=== PATIENT | female | born 1985 | race Asian ===

== ENCOUNTER 2017-09-04 19:49 | Emergency (ER) | payer BC, MEDICAID ==
[2017-09-04 21:02] LABS: #Basophils 0.1 thou/uL (0.0-0.2); #Eosinphils 0.3 thou/uL (0.0-0.7); #Lymphocytes 2.3 thou/uL (1.20-3.40); #Monocytes 0.6 thou/uL (0.11-0.59); #Neutrophils 4.8 thou/uL (1.40-6.50); %Basophils 1.3 % (0.0-1.0); %Eosinophils 3.5 % (0.0-10.0); %Lymphocytes 28.2 % (21.0-51.0); %Monocytes 7.5 % (0.0-10.0); Hematocrit 37.9 % (36.0-47.0); Mean Platelet Volume 8.5 fL (7.4-10.4); Red Blood Cell (RBC) Count 4.29 mill/uL (4.20-5.40); White Blood Cell (WBC) Count 8.1 thou/uL (4.8-10.8)
--- NOTE | 2017-09-04 22:53 | ULT ---
PELVIC SONOGRAM TRANSABDOMINAL AND TRANSVAGINAL IMAGING WITH DUPLEX EVALUATION 09/04/17 HISTORY: Pelvic pain. FINDINGS: Urinary bladder is decompressed. Uterus has a heterogeneous echotexture and is 8.5 cm in length. An i rregular cystic structure within the endometrial cavity measures up to 1.6 cm diameter. No pole or yolk sac are visualized. No free fluid is apparent. The right ovary is not well visualized. Left ovary is 3.7 cm in length and contains follicles and dem onstrates good color and spectral doppler flow. IMPRESSION: Irregular cystic structure within the endometrial cavity, not having an appearance of a normal pregna ncy. Clinical correlation regarding other signs and symptoms of early or recent spontaneous is required. Closed continued clinical and sonographic followup is recommended regarding th e possibility of an ectopic . POS: TONY
== END 2017-09-04 23:28 | disposition home or self-care (01) ==
LOC: ERS 19:49
DX: O20.0 Threatened abortion (principal); Z3A.01 Less than 8 weeks gestation of pregnancy
CPT/HCPCS: 36415; 76856; 84702; 85025; 86900; 86901

== ENCOUNTER 2018-04-06 00:13 | Day surgery (SDC) | payer BC ==
[2018-04-06 01:31] VITALS: BP 131/86; TEMP 97.9
--- NOTE | 2018-04-06 01:54 | PRG ---
DATE OF SERVICE: 04/06/2018 TIME OF SERVICE: 0110 hours. OB ED NOTE PRESENTING COMPLAINT: Small amount of brown discharge and occasional contractions. HISTORY OF PRESENT ILLNESS: Ms. Wiggins is a 33-year-old 2, para 1 with twins at 36-6/7 weeks w ith an EDC of 04/28/2018. She has been seen by Dr. Sirena Torres throughout her as well as [facility]. She presents complaining of small amount of brown discharge on her isma -pad this evening along with occasional contractions. She reports active fetus. She denies rupture of membranes. OBSTETRIC AND GYNECOLOGIC HISTORY: x1, A positive, antibody negative, Pap negative, rubella immu ne, VDRL nonreactive. 3-hour GTT within normal limits. Group B Strep unknown. Previous spontaneous vaginal delivery of an 8-pound 3-ounce male. The patient reports that ultrasound at the office this week revealed vertex-vertex presentation. PAST MEDICAL HISTORY: None. PAST SURGICAL HISTORY: None. ALLERGIES: Denies. MEDICATIONS: vitamins. SOCIAL HISTORY: Denies tobacco, alcohol, or drug use. FAMILY HISTORY: Noncontributory. REVIEW OF SYSTEMS: Noncontributory. PHYSICAL EXAMINATION: GENERAL: Irish female in no acute distress, resting comfortably. VITAL SIGNS: Blood pressure 130/82, temperature 98.6, respirations 18, pulse 92. HEENT: Within normal limits. LUNGS: Clear to auscultation bilaterally. HEART: Regular rate and rhythm. ABDOMEN: Soft, nontender. Fundal height 42 cm. FHTs 140s and 145s. Reactive heart rate trac ing x2. Contractions every 3-5 minutes, indentable and soft. EXTREMITIES: Without clubbing, cyanosis, or edema. GENITOURINARY: Vaginal exam reveals small amount of bloody mucus. Cervix is 2-3, 50, cephalic, and -1. IMPRESSION: Twin at 36-37 weeks' gestation with reassuring heart rate tracing x2 wit h early cervical dilatation. No evidence of active labor. PLAN: Discussed with the patient options. The patient desires to go home. She has ER precautions. She will return as needed, otherwise will keep scheduled followup with Dr. Torres next week.
== END 2018-04-06 01:25 | disposition home or self-care (01) ==
LOC: L&D/OP 00:13
PROVIDERS: ATTEND Family Medicine
DX: O34.33 Maternal care for cervical incompetence, third trimester (principal); O30.003 Twin pregnancy, unspecified number of placenta and unspecified number of amniotic sacs, third trimester; Z79.899 Other long term (current) drug therapy; Z3A.36 36 weeks gestation of pregnancy

== ENCOUNTER 2018-04-07 20:42 | Inpatient (IN) | payer BC ==
[2018-04-07 21:33] LABS: Amnisure Internal Control QC ACCEPTABLE (ACCEPTABLE); Amnisure Test RUPTURE DETECTED (No Rupture)
[2018-04-07] MEDS: Lactated Ringer's 1,000 ML IV SCH (22:17)
[2018-04-07 23:28] LABS: Hemoglobin 13.1 g/dL (12.0-16.0); Mean Corpuscular HGB CONC 33.9 g/dL (32.0-36.0); Mean Corpuscular Hemoglobin 29.9 pg (27.0-31.0); Mean Corpuscular Volume 88.1 fl (81.0-99.0); Mean Platelet Volume 8.4 fL (7.4-10.4); Platelet Count 211 thou/uL (130-400); RBC Distribution Width 12.5 % (11.5-14.5); Red Blood Cell (RBC) Count 4.37 mill/uL (4.20-5.40); White Blood Cell (WBC) Count 6.8 thou/uL (4.8-10.8)
[2018-04-07] MEDS ORDERED: Promethazine HCl 25 MG/ML VIAL IM PRN (23:34)
[2018-04-07] MEDS ORDERED: Ondansetron HCl/PF 4 MG/2 ML Vial IVP PRN (23:34)
[2018-04-07] MEDS ORDERED: Ibuprofen 800 MG TAB PO PRN (23:45)
[2018-04-07] MEDS ORDERED: DISCONTINUE ALL PREVIOUS NARCOTICS FS SCH (23:45)
[2018-04-07] MEDS ORDERED: NS / Oxytocin 40 units/1000ml 1,000 ML IV SCH (23:45)
[2018-04-07] MEDS ORDERED: Bupivacaine 0.75% 13.4 ML, fentaNYL Citrate/PF 400 MCG in Sodium Chloride 0.9% 78.6 ML EPIDURAL SCH (23:45)
[2018-04-07] MEDS ORDERED: Misoprostol 200 MCG TAB RC PRN (23:45)
[2018-04-07] MEDS ORDERED: NS w/ Oxytocin 10 units 500 ML IV SCH ×2 (23:45)
[2018-04-07] MEDS ORDERED: Lidocaine 1% (PF) 30 ML VIAL SC PRN (23:45)
[2018-04-08 00:11] LABS: Syphilis Antibody Nonreactive (Nonreactive); Syphilis Antibody Index 0.04 S/CO (<1.00 Non-Reactive)
[2018-04-08] MEDS ORDERED: Acetaminophen 325 MG TAB PO PRN (00:19)
[2018-04-08] MEDS ORDERED: Eucerin (Mineral Oil/Petrolatum,White) 30 gm Jar TOP PRN (00:19)
[2018-04-08] MEDS ORDERED: Lactated Ringer's 500 ML IV PRN (00:19)
[2018-04-08] MEDS ORDERED: Promethazine HCl 25 MG/ML VIAL IM PRN (00:19)
[2018-04-08] MEDS ORDERED: ePHEDrine/0.9% NaCl/PF SYRINGE 50 mg/10 ml SLOW IVP PRN (00:19)
[2018-04-08] MEDS ORDERED: diphenhydrAMINE 50 MG/ML VIAL IVP PRN (00:19)
[2018-04-08] MEDS ORDERED: Naloxone HCl 0.4 mg/ml Vial IVP PRN ×2 (00:19)
[2018-04-08] MEDS ORDERED: Ondansetron HCl/PF 4 MG/2 ML Vial IVP PRN ×2 (00:19→05:53)
[2018-04-08] MEDS ORDERED: Communication Order-Pharmacy FS SCH (00:30)
[2018-04-08] MEDS ORDERED: Fentanyl 4mcg/Marcaine 0.1% Cassette 100 ML EPIDURAL SCH (00:30)
[2018-04-08 01:07] LABS: HBSAg Index 0.12 S/CO (0-0.99); Hep B Surf Ag Non-Reactive S/CO (NonReactive)
[2018-04-08] MEDS: Lactated Ringer's 1,000 ML IV SCH ×2 (03:02→05:01)
[2018-04-08] MEDS: NS / Oxytocin 40 units/1000ml 1,000 ML IV SCH ×2 (03:37→06:29)
[2018-04-08] MEDS ORDERED: Bupivacaine 0.25% HCL 30 ML VIAL ONE (05:02)
[2018-04-08] MEDS ORDERED: CEFAZOLIN 1 GM VIAL ONE ×2 (05:15→05:16)
[2018-04-08] MEDS ORDERED: Oxytocin 10 UNITS/ML VIAL ONE (05:18)
[2018-04-08] MEDS ORDERED: Methylergonovine 0.2 MG/ML VIAL ONE (05:20)
[2018-04-08] MEDS ORDERED: CEFAZOLIN/Water 2 GM/20 ML SYRINGE SLOW IVP SCH (05:45)
[2018-04-08] MEDS ORDERED: Methylergonovine 0.2 MG/ML VIAL IM SCH ×2 (05:45→06:00)
[2018-04-08] MEDS ORDERED: Benzocaine/Menthol 20-0.5% 60 ML CAN TOP PRN (05:53)
[2018-04-08] MEDS ORDERED: Milk Of Magnesia 30 ML UDCUP PO PRN (05:53)
[2018-04-08] MEDS ORDERED: diphenhydrAMINE 25 MG CAP PO PRN (05:53)
[2018-04-08] MEDS ORDERED: Acetaminophen/Codeine 30-300mg Tablet PO PRN (05:53)
[2018-04-08] MEDS ORDERED: Lanolin Ointment 7 GM TUBE TOP PRN (05:53)
[2018-04-08] MEDS ORDERED: Preparation H Ointment 28 GM TUBE PR PRN (05:53)
[2018-04-08] MEDS ORDERED: Bisacodyl 10 MG SUPP PR PRN (05:53)
[2018-04-08] MEDS ORDERED: HYDROcodone/Acetaminophen 5/325 mg Tablet PO PRN (05:53)
[2018-04-08] MEDS: Ibuprofen 800 MG TAB PO SCH ×3 (06:01→22:07)
[2018-04-08] MEDS: CEFAZOLIN 1 GM in Sodium Chloride 0.9% 100 ML IVPB SCH ×3 (06:02→22:07)
--- NOTE | 2018-04-08 06:30 | OP ---
DATE OF SERVICE: 04/08/2018 PREOPERATIVE DIAGNOSES: A 37-week 1 day diamniotic dichorionic twins in active labor. POSTOPERATIVE DIAGNOSES: A 37-week 1 day diamniotic dichorionic twins in active labor, status post d elivery with retained placenta. PROCEDURE: 1. Normal spontaneous vaginal delivery. 2. Manual removal of retained placenta. SURGEON: Sirena Torres M.D. POWERHOUSE ELECTRICIAN: Sherwin Chen M.D. ANESTHETIC: Epidural. COMPLICATIONS: No other complications. PROCEDURE: The patient was taken to the operative room for planned vaginal delivery with spontaneous rupture of membranes and cervix completely dilated. The patient pushed and noted normal spontaneous vaginal delivery of a viable female infant noted to be twin A from vertex presentation. Infant ulices thed and cried spontaneously, was placed on the mother's abdomen, dried, cord clamped and cut after a pproximately 60 seconds and then taken to the radiant warmer, noted that membranes were intact as wit h cervix remaining complete, the patient pushed noted spontaneous rupture of membranes of clear fluid and normal spontaneous vaginal delivery of a viable female infant noted as twin B from vertex presen tation without difficulty. breathed and cried spontaneously, was bulb suctioned, placed on mo ther's abdomen, was dried, covered in warm blanket and cord was clamped and cut after approximately 6 0 seconds. The baby was then taken to the radiant warmer. A cord clamp was placed over on the umbil ical cord of baby B. Cord blood was obtained individually. Pitocin started IV and gentle traction p laced on the cords. It was noted that there was minimal bleeding, but after 1 hour, noted that place nta continued to be retained. Manual inspection revealed placenta partially in the uterine cavity an d a large portion of the placenta remained in the left upper fundus. Attempt was made to manually re move this with the assistance of Dr. Chen. After approximately 40 minutes, again with moderate ble eding and patient tolerating well with epidural anesthetic eventual delivery of the retained placenta manually which appeared intact. Uterus contracted down. There was minimal bleeding afterwards. IV Pitocin was restarted and the patient given IM Methergine as well as IV antibiotics for prophylaxis. The patient tolerated the procedure well. Noted her vital signs remained stable throughout the pro cedure. She remained fairly comfortable, although Anesthesia had been called and additional medicati ons were given mid procedure. The patient recovering well and go for prolonged recovery in LDR for o bservation. Baby A is a viable female , weight 6 pounds 13 ounces, Apgars 9 at 1 minute, 9 at 5 minutes in level 1 nursery. Baby B is a viable female infant, weight 6 pounds, 5 ounces, Apgars 9 at 1 minute, 9 at 5 minutes in level 1 nursery. No other complications noted. There were no perinea l lacerations. ESTIMATED BLOOD LOSS: 1000 mL.
--- NOTE | 2018-04-08 08:29 | CON ---
DATE OF CONSULTATION: 04/08/2018 ADMITTING PHYSICIAN: Sirena Torres M.D. CONSULTING PHYSICIAN: Sherwin Chen M.D. REASON FOR CONSULTATION: Retained placenta. SUMMARY OF HOSPITAL COURSE AND CONSULTATION: The patient was 37 weeks gestation with spontaneous ons et of labor with cephalic, cephalic twins. She proceeded to spontaneous vaginal delivery at approxim ately 0400 hours. Delivery was uncomplicated. I was recalled. I was present in the operating room for standby purposes and helped out with ultrasound with Dr. Torres for delivery of twin B. I depart ed and was recalled to the operating room approximately 0500 hours. The patient had a delayed third stage of labor. Dr. Torres revealed that the first placenta had released fairly spontaneously, but w as still adherent to the second and the second was retained. On uterine exploration, the placenta th at was still retained was densely adherent almost in its complete entirety still in the left fundal r egion and essentially felt as if the umbilical cord inserted at the level of the left tubal ostia. P itocin had been stopped and gradually the lower uterine segment relaxed to allow more access with the tetryl nitrator operator's hand and arm. The patient had good analgesia with epidural and Anesthesia was called for bolusing to provide better analgesia. Over the course of about 20 minutes both myself and Dr. Strong n provided traction and cleavage of the placenta from the uterus manually to getting her fingers into the cleavage plane. It was extremely difficult because of the large size of the uterus, the densely adherent nature of the placenta, and its position to our extreme right. Over time and switching johnny k and forth because of surgeon exhaustion and cramping because of the difficult angle, Dr. Torres and I with both our right and left arms finally achieved cleavage with Dr. Torres removing the placenta. I examined the uterus manually after Dr. Torres removed the placenta and did not find any evidence of perforation, gross abnormality of the uterine cavity shape, or retained products of conception. M y estimated blood loss is probably at 9535-3344 mL level, it is difficult to ascertain for sure becau se of amniotic fluid and the fluid collection draped. The patient's vital signs remained stable thro ughout and hematocrit was adequate preoperatively. The patient was given 2 g of Ancef intraoperative ly. She will be entered into extended recovery on the Labor and Delivery unit by Dr. Danny belcher with serial exams, hematocrit, Ricks catheter, Pitocin, Methergine, and other possible drugs to he lp maintain uterine tone.
[2018-04-08] MEDS: Ferrous Sulfate 325 MG TAB PO SCH ×2 (08:36→18:06)
[2018-04-08] MEDS: Docusate Calcium (SURFAK) 240 MG CAP PO SCH ×2 (11:43→21:06)
[2018-04-08] MEDS: Prenatal Vitamin 1 TAB PO SCH (11:43)
[2018-04-09 05:31] LABS: Hemoglobin 10.9 g/dL (12.0-16.0); Mean Corpuscular HGB CONC 33.4 g/dL (32.0-36.0); Mean Corpuscular Hemoglobin 30.2 pg (27.0-31.0); Mean Corpuscular Volume 90.5 fL (78.0-98.0); Mean Platelet Volume 8.2 fL (7.4-10.4); Platelet Count 173 thou/uL (130-400); RBC Distribution Width 12.3 % (11.5-14.5); White Blood Cell (WBC) Count 7.3 thou/uL (4.8-10.8)
[2018-04-09] MEDS: CEFAZOLIN 1 GM in Sodium Chloride 0.9% 100 ML IVPB SCH (06:05)
[2018-04-09] MEDS: Ibuprofen 800 MG TAB PO SCH ×2 (06:05→14:20)
[2018-04-09] MEDS: Prenatal Vitamin 1 TAB PO SCH (09:04)
[2018-04-09] MEDS: Docusate Calcium (SURFAK) 240 MG CAP PO SCH (09:05)
[2018-04-09] MEDS: Ferrous Sulfate 325 MG TAB PO SCH (09:05)
[2018-04-10] MEDS: Ibuprofen 800 MG TAB PO SCH ×2 (06:01)
[2018-04-10] MEDS: Docusate Calcium (SURFAK) 240 MG CAP PO SCH ×2 (06:01→07:44)
[2018-04-10] MEDS: Ferrous Sulfate 325 MG TAB PO SCH (07:42)
[2018-04-10] MEDS: Prenatal Vitamin 1 TAB PO SCH (07:44)
[2018-04-10 08:05] VITALS: BP 137/85; TEMP 97.8
== END 2018-04-10 13:55 | disposition home or self-care (01) | DRG 767 ==
LOC: L&D/OP 20:42 → L&D 21:57 → 3SW 04-08 12:00
PROVIDERS: ADMIT Family Medicine; ATTEND Family Medicine
PROC: 10E0XZZ Delivery of Products of Conception, External Approach (ICD-10-PCS; principal; 2018-04-08)
PROC: 10D17Z9 Manual Extraction of Products of Conception, Retained, Via Natural or Artificial Opening (ICD-10-PCS; 2018-04-08)
DX: O30.043 Twin pregnancy, dichorionic/diamniotic, third trimester (principal); Z37.2 Twins, both liveborn; Z3A.37 37 weeks gestation of pregnancy
CPT/HCPCS: 36415; 51701; 51702; 76815; 84112; 85027; 86780; 86850; 86900; 86901; 87340; 88307; 99285; J0690; J2001; J2210; J2590; J3010; J7050; S0020